=== PATIENT | female | born 1980 | race Two or more races ===

== ENCOUNTER 2024-02-13 16:44 | Emergency (ER) | payer OTHER ==
[~2024-02-13] VITALS: Ht 152.4 cm; Wt 52.2 kg
[2024-02-13 17:24] VITALS: BP 114/73; PULSE 88; RESP 17; O2SAT 95
[2024-02-13] MEDS ORDERED: MECLIZINE HCL 25 MG TAB PO ONE (19:30)
[2024-02-13] MEDS ORDERED: ONDANSETRON ODT 4 MG TAB PO ONE (19:30)
[2024-02-13] MEDS ORDERED: MECL1TAB42 PO (19:34)
[2024-02-13] MEDS ORDERED: ZOFR4T PO (19:34)
== END 2024-02-14 00:59 | disposition left against medical advice (07) ==
LOC: ER 16:44
DX: H81.09 Meniere's disease, unspecified ear (principal); I10 Essential (primary) hypertension
CPT/HCPCS: 93005